=== PATIENT | female | born 1955 | race Caucasian/White ===

== ENCOUNTER 2017-11-06 16:57 | Inpatient (IN) | payer BC ==
[2017-11-06] MEDS ORDERED: ACETAMINOPHEN 325 MG TABLET. PO ×2 (17:45→18:00)
[2017-11-06] MEDS ORDERED: ONDANSETRON PF 4 MG/2 ML VIAL. IV (17:45)
[2017-11-06] MEDS ORDERED: MORPHINE SULFATE 2 MG/ML DISP.SYRIN. IV (17:45)
[2017-11-06] MEDS ORDERED: hydrALAZINE 20 MG/ML VIAL. IVP (17:45)
[2017-11-06] MEDS ORDERED: DOCUSATE SODIUM 100 MG CAPSULE. PO (17:45)
[2017-11-06] MEDS ORDERED: traMADol 50 MG TABLET PO (17:45)
[2017-11-06] MEDS ORDERED: LABETALOL 20 MG/4 ML DISP.SYRIN. IVP (18:00)
[2017-11-06] MEDS ORDERED: CONTRAST GIVEN. MC ×2 (18:00)
[2017-11-06] MEDS ORDERED: ACETAMINOPHEN 650 MG SUPP.RECT. PR (18:00)
[2017-11-06] MEDS ORDERED: ASPIRIN 300 MG SUPP.RECT PR (18:00)
[2017-11-06] MEDS: IOHEXOL 300 MG/ML 100ML VIAL. IV (18:30)
[2017-11-06] MEDS ORDERED: ATORVASTATIN CALCIUM 40 MG TABLET. PO (21:00)
[2017-11-06] MEDS: ATORVASTATIN CALCIUM 40 MG TABLET. PO (21:18)
[2017-11-06] MEDS: ENOXAPARIN 40 MG/0.4 ML SYRINGE. SQ (21:18)
[2017-11-06] MEDS: IV NORMAL SALINE 1000ML BAG 1,000 ML IV (21:19)
[2017-11-07 06:29] LABS: ADD MAN DIFF? NO
[2017-11-07] MEDS: IV NORMAL SALINE 1000ML BAG 1,000 ML IV ×2 (06:30→13:50)
[2017-11-07 06:55] LABS: BASO % 1 % (0-3); EOS # 0.1 x10^3/uL (0.0-0.7); EOS % 3 % (0-3); HEMATOCRIT 37.4 % (36.0-47.0); HEMOGLOBIN 12.9 g/dL (12.0-15.5); LYMPH # 2.2 x10^3/uL (1.0-4.8); LYMPH % 45 % (24-48); MEAN CORPUSCULAR HEMOGLOBIN 32 pg (25-35); MEAN CORPUSCULAR HGB CONC 35 g/dL (31-37); MEAN CORPUSCULAR VOLUME 93 fL (79-100); MONO # 0.4 x10^3/uL (0.0-1.1); MONO % 8 % (0-9); NEUT # 2.1 x10^3uL (1.8-7.7); NEUT % 43 % (31-73); PLATELET COUNT 274 x10^3/uL (140-400); RED BLOOD COUNT 4.04 x10^6/uL (3.50-5.40); WHITE BLOOD COUNT 4.9 x10^3/uL (4.0-11.0)
[2017-11-07 07:12] LABS: CHOLESTEROL 154 mg/dL (0-200); HDLC 45 mg/dL (40-60); LDLC 84 mg/dL (0-100); NON-HDL CHOLESTEROL 109 mg/dL (0-129); TRIGLYCERIDES 125 mg/dL (0-150); VLDLC 25 mg/dL (0-40)
[2017-11-07 07:14] LABS: CHOLESTEROL/HDL RATIO 3.4
[2017-11-07 07:16] LABS: ANION GAP 8 (6-14); BLOOD UREA NITROGEN 14 mg/dL (7-20); CALCIUM 8.1 mg/dL (8.5-10.1); CARBON DIOXIDE 26 mmol/L (21-32); CHLORIDE 109 mmol/L (98-107); CREATININE 0.6 mg/dL (0.6-1.0); GLUCOSE 103 mg/dL (70-99); POTASSIUM 3.4 mmol/L (3.5-5.1); SODIUM 143 mmol/L (136-145)
[2017-11-07] MEDS ORDERED: ASPIRIN ENTERIC COATED 81 MG TABLET.DR. PO (08:00)
[2017-11-07] MEDS ORDERED: CITALOPRAM 20 MG TABLET. PO (09:00)
[2017-11-07] MEDS: ASPIRIN ENTERIC COATED 325 MG TABLET.DR. PO (09:01)
[2017-11-07] MEDS: hydroCHLOROthiazide 25 MG TABLET PO (09:01)
[2017-11-07] MEDS: PANTOPRAZOLE 40 MG TABLET.DR. PO (09:01)
[2017-11-07] MEDS: LOSARTAN POTASSIUM 50 MG TABLET. PO (09:02)
[2017-11-07] MEDS ORDERED: PERFLUTREN PROTEIN-A MICROSPHR 0.22 MG/ML 3 ML VIAL. IV (13:06)
[2017-11-07] MEDS ORDERED: POLYVINYL ALCOHOL 1.4% OPHTH SOLUTION 15ML BOTTLE. OS (14:00)
[2017-11-07] MEDS: GADOBUTROL 7.5 MMOL/7.5 ML VIAL IV (15:20)
[2017-11-07] MEDS: predniSONE 20 MG TABLET PO (17:04)
[2017-11-07] MEDS: NEOMY/BACITR/POLYMYXIN OINT PACKET. TP (17:18)
== END 2017-11-07 18:02 | disposition home or self-care (01) | DRG 74 ==
LOC: 5 SOUTH 16:57
DX: G51.0 Bell's palsy (principal); I10 Essential (primary) hypertension; E87.6 Hypokalemia; H92.02 Otalgia, left ear; Z82.49 Family history of ischemic heart disease and other diseases of the circulatory system; Z90.710 Acquired absence of both cervix and uterus; Z79.899 Other long term (current) drug therapy; Z88.5 Allergy status to narcotic agent
CPT/HCPCS: 36415; 70496; 70498; 70553; 80048; 80061; 85025; 92610-GN; 93306; 97161-GP; 97165-GO; A9585; J1650; J7030; J7512; Q9967